=== PATIENT | male | born 1985 | race Caucasian/White ===

== ENCOUNTER 2021-06-19 13:05 | Inpatient (IN) ==
[2021-06-19 13:49] LABS: Appearance Urine Clear (Clear); Bilirubin Urine Negative (Negative); Blood Urine Negative (Negative); Color Urine Dark Yellow; Glucose Urine UA Negative (Negative); Ketones Urine Trace (Negative); Leukocyte Esterase Urine Negative (Negative); Nitrite Urine Negative (Negative); Protein Urine Negative (Negative); Specific Gravity Urine 1.023 (1.000-1.030); Urobilinogen Urine Negative (Negative)
[2021-06-19] MEDS ORDERED: LORazepam 1 MG TAB SL STA (14:03)
--- NOTE | 2021-06-19 14:09 | Emergency Department Note ---
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 Patient states he is doing well in all classes except for one where the professor keeps putting material on in exam that they have the lecture on both the day before. He is also stressed about a project that he states has not been explained for the same class. He is upset because a lot of students in the class are cheating to get through these unreasonable assignments as he states they are. He is stressed out about the work in the project. He states he has been having decreased sleep feelings of hopelessness, feelings of depression and feeling overwhelmed. Patient states he called Prior to arrival. Patient states on the drive over here he was having increased impulses to hurt himself by driving off of the road to kill himself. Patient states that he has a history of depression and anxiety and was hospitalized for mental health at the age of 19. He states he is not on any medications for mental health at the time. Past Med/Surg History Medical History Anxiety Depression No pertinent family history Spinal stenosis Surgical History No pertinent past surgical history Social History Smoking Status: Never smoker Feels Safe at Home: Yes Review of Systems A total of 10 systems reviewed and were otherwise negative Physical Exam Vital Signs Vital Signs - 24 hr 06/19/21 13:13 Temperature 36.4 C L Temperature Source Temporal Artery Scan Pulse Rate 113 H Respiratory Rate 20 Respiratory Effort / Characteristics Non-Labored Spontaneous Respiratory Depth Normal Respiratory Pattern Regular Blood Pressure 135/94 Blood Pressure Mean 107 Blood Pressure Position Sitting Pulse Oximetry 97 Oxygen Delivery Method Room Air Sepsis Recent Fever Within 48 Hours No Sepsis New/Unexplained Change in Mental Status No Sepsis Action Taken by Nursing No Action Required Physical Exam HENT: Exam performed. - Head: Normocephalic and atraumatic. - Right Ear: External ear normal. No mastoid tenderness. - Left Ear: External ear normal. No mastoid tenderness. - Mouth/Throat: The oropharynx is clear and moist. No trismus in the jaw. No dental abscesses or uvula swelling. No oropharyngeal exudate or tonsillar abscesses. EYES: Conjunctivae and EOM are normal. Pupils are equal, round, and reactive to light. Right eye exhibits no discharge. Left eye exhibits no discharge. No scleral icterus. NECK: Normal range of motion. Neck supple. No JVD present. No spinous process tenderness present. No carotid bruit present. No rigidity. No tracheal deviation and normal range of motion present. No Brudzinski's sign and no Kernig's sign noted. CV: Normal rate, regular rhythm, normal heart sounds and intact distal pulses. There is no peripheral edema. Palpable radial pulses bue. PULM/CHEST: Effort normal and breath sounds normal. No respiratory distress. No stridor. He has no wheezes. He has no rales. - Chest Wall: He exhibits no tenderness. ABD: The abdomen is soft. Bowel sounds are normal. He has no distension. No mass is present. There is no tenderness. There is no rebound, no guarding, no Godwin's sign and no tenderness at McBurney's point. Rovsig negative. MUSC/SKEL: Normal range of motion. There is no peripheral edema, tenderness or deformity. LYMPH: No cervical adenopathy. NEURO: He is alert and oriented to person, place, and time. He has normal strength. No cranial nerve deficit or sensory deficit. Coordination and gait normal. GCS eye subscore is 4. GCS verbal subscore is 5. GCS motor subscore is 6. Cerebellar tests wnl. SKIN: Skin is warm and dry. He is not diaphoretic. PSYCH: Pressured speech, patient is tearful, patient is having suicidal ideation. Course Course 1335: The patient was evaluated in room A5. A complete history and physical exam was performed 1440: Patient medically cleared. Awaiting psychiatric evaluation placement. Patient placed in observation at this time. 1848: Patient still awaiting placement. There are no beds available [facility]. however they are planning discharge tomorrow and are anticipating the patient should be able to get a bed there tomorrow. Patient be held in the emergency department overnight until bed is secured in [facility] tomorrow or other nearby local psychiatric facility. Patient doing well feeling better after Ativan. Case signed out to Dr. Lundberg. Administered Medications Discontinued Medications Lorazepam (Lorazepam 1 Mg Tab) 1 mg SL NOW STA Stop: 06/19/21 14:04 Last Admin: 06/19/21 14:25 Dose: 1 mg Documented by: [id number] Medical Decision Making Laboratory Data Result diagrams: 06/19/21 14:17 06/19/21 14:17 Lab Results 06/19/21 06/19/21 06/19/21 Range/Units 14:17 14:17 14:17 WBC 10.20 (4.8-10.8) K/uL RBC 5.04 (4.7-6.1) M/uL Hgb 15.0 (14.0-18.0) g/dL Hct 43.6 (42-52) % MCV 86.5 (80-100) fL MCH 29.8 (25-34) pg MCHC 34.4 (32-36) g/dL RDW Std Deviation 44.5 (36.4-46.3) fL RDW Coeff of Mark Anthony 14.2 (11.5-14.5) % Plt Count 200 (130-400) K/uL MPV 11.9 H (7.4-10.4) fL Immature Gran % (Auto) 0.2 % Neut % (Auto) 66.7 % Lymph % (Auto) 25.0 % [place] % (Auto) 6.4 % Eos % (Auto) 1.4 % Baso % (Auto) 0.3 % Neut # (Auto) 6.81 H (1.4-6.5) K/uL Lymph # (Auto) 2.55 (1.2-3.4) K/uL [place] # (Auto) 0.65 H (0.11-0.59) K/uL Eos # (Auto) 0.14 (0-0.5) K/uL Baso # (Auto) 0.03 (0-0.2) K/uL Immature Gran # (Auto) 0.02 (0.00-0.02) K/uL Sodium 136 (136-145) mmol/L Potassium 3.9 (3.5-5.1) mmol/L Chloride 106 (98-107) mmol/L Carbon Dioxide 24 (21-32) mmol/L Anion Gap 6 (3-11) BUN 9 (6-23) mg/dl Creatinine 0.83 (0.6-1.4) mg/dl Est Cr Clr Drug Dosing Not Reportable Est GFR ( Amer) 134.0 ml/min Est GFR (Non-Af Amer) 115.6 ml/min BUN/Creatinine Ratio 10.8 (10-20) Glucose 101 H (70-99(Fasting)) mg/dl Calcium 8.9 (8.5-10.1) mg/dl Total Bilirubin 0.8 (0.2-1.0) mg/dl AST 14 (13-39) U/L ALT 20 (7-52) U/L Alkaline Phosphatase 79 (34-104) U/L Total Protein 6.3 (6.0-8.3) gm/dl Albumin 3.9 (3.4-5.0) gm/dl Globulin 2.4 L (2.5-4.0) gm/dl Albumin/Globulin Ratio 1.6 (0.9-2) TSH 1.090 (0.300-4.500) uIu/ml Urine Color Urine Appearance (Clear) Urine pH (4.5-7.5) Ur Specific [place] (1.000-1.030) Urine Protein (Negative) Urine Glucose (UA) (Negative) Urine Ketones (Negative) Urine Blood (Negative) Urine Nitrite (Negative) Urine Bilirubin (Negative) Urine Urobilinogen (Negative) Ur Leukocyte Esterase (Negative) Salicylates (3.0-30) mg/dl Urine Opiates Screen (Neg) Ur Methadone, Qual (Neg) Acetaminophen (10-30) ug/ml Urine Barbiturates (Neg) Ur Phencyclidine (PCP) (Neg) U Amphetamin/Meth Scrn (Neg) MDMA (Ecstasy) Screen (Neg) U Benzodiazepines Scrn (Neg) Ur Cocaine Metabolite (Neg) U Marijuana (THC) Screen (Neg) Ethyl Alcohol mg/dL (<10.0) mg/dl 06/19/21 06/19/21 06/19/21 Range/Units 14:17 14:17 Unknown WBC (4.8-10.8) K/uL RBC (4.7-6.1) M/uL Hgb (14.0-18.0) g/dL Hct (42-52) % MCV (80-100) fL MCH (25-34) pg MCHC (32-36) g/dL RDW Std Deviation (36.4-46.3) fL RDW Coeff of Mark Anthony (11.5-14.5) % Plt Count (130-400) K/uL MPV (7.4-10.4) fL Immature Gran % (Auto) % Neut % (Auto) % Lymph % (Auto) % [place] % (Auto) % Eos % (Auto) % Baso % (Auto) % Neut # (Auto) (1.4-6.5) K/uL Lymph # (Auto) (1.2-3.4) K/uL [place] # (Auto) (0.11-0.59) K/uL Eos # (Auto) (0-0.5) K/uL Baso # (Auto) (0-0.2) K/uL Immature Gran # (Auto) (0.00-0.02) K/uL Sodium (136-145) mmol/L Potassium (3.5-5.1) mmol/L Chloride (98-107) mmol/L Carbon Dioxide (21-32) mmol/L Anion Gap (3-11) BUN (6-23) mg/dl Creatinine (0.6-1.4) mg/dl Est Cr Clr Drug Dosing Est GFR ( Amer) ml/min Est GFR (Non-Af Amer) ml/min BUN/Creatinine Ratio (10-20) Glucose (70-99(Fasting)) mg/dl Calcium (8.5-10.1) mg/dl Total Bilirubin (0.2-1.0) mg/dl AST (13-39) U/L ALT (7-52) U/L Alkaline Phosphatase (34-104) U/L Total Protein (6.0-8.3) gm/dl Albumin (3.4-5.0) gm/dl Globulin (2.5-4.0) gm/dl Albumin/Globulin Ratio (0.9-2) TSH (0.300-4.500) uIu/ml Urine Color Dark Yellow Urine Appearance Clear (Clear) Urine pH 6.0 (4.5-7.5) Ur Specific [place] 1.023 (1.000-1.030) Urine Protein Negative (Negative) Urine Glucose (UA) Negative (Negative) Urine Ketones Trace H (Negative) Urine Blood Negative (Negative) Urine Nitrite Negative (Negative) Urine Bilirubin Negative (Negative) Urine Urobilinogen Negative (Negative) Ur Leukocyte Esterase Negative (Negative) Salicylates < 3.0 L (3.0-30) mg/dl Urine Opiates Screen (Neg) Ur Methadone, Qual (Neg) Acetaminophen < 3 L (10-30) ug/ml Urine Barbiturates (Neg) Ur Phencyclidine (PCP) (Neg) U Amphetamin/Meth Scrn (Neg) MDMA (Ecstasy) Screen (Neg) U Benzodiazepines Scrn (Neg) Ur Cocaine Metabolite (Neg) U Marijuana (THC) Screen (Neg) Ethyl Alcohol mg/dL < 10.0 (<10.0) mg/dl 06/19/21 Range/Units Unknown WBC (4.8-10.8) K/uL RBC (4.7-6.1) M/uL Hgb (14.0-18.0) g/dL Hct (42-52) % MCV (80-100) fL MCH (25-34) pg MCHC (32-36) g/dL RDW Std Deviation (36.4-46.3) fL RDW Coeff of Mark Anthony (11.5-14.5) % Plt Count (130-400) K/uL MPV (7.4-10.4) fL Immature Gran % (Auto) % Neut % (Auto) % Lymph % (Auto) % [place] % (Auto) % Eos % (Auto) % Baso % (Auto) % Neut # (Auto) (1.4-6.5) K/uL Lymph # (Auto) (1.2-3.4) K/uL [place] # (Auto) (0.11-0.59) K/uL Eos # (Auto) (0-0.5) K/uL Baso # (Auto) (0-0.2) K/uL Immature Gran # (Auto) (0.00-0.02) K/uL Sodium (136-145) mmol/L Potassium (3.5-5.1) mmol/L Chloride (98-107) mmol/L Carbon Dioxide (21-32) mmol/L Anion Gap (3-11) BUN (6-23) mg/dl Creatinine (0.6-1.4) mg/dl Est Cr Clr Drug Dosing Est GFR ( Amer) ml/min Est GFR (Non-Af Amer) ml/min BUN/Creatinine Ratio (10-20) Glucose (70-99(Fasting)) mg/dl Calcium (8.5-10.1) mg/dl Total Bilirubin (0.2-1.0) mg/dl AST (13-39) U/L ALT (7-52) U/L Alkaline Phosphatase (34-104) U/L Total Protein (6.0-8.3) gm/dl Albumin (3.4-5.0) gm/dl Globulin (2.5-4.0) gm/dl Albumin/Globulin Ratio (0.9-2) TSH (0.300-4.500) uIu/ml Urine Color Urine Appearance (Clear) Urine pH (4.5-7.5) Ur Specific [place] (1.000-1.030) Urine Protein (Negative) Urine Glucose (UA) (Negative) Urine Ketones (Negative) Urine Blood (Negative) Urine Nitrite (Negative) Urine Bilirubin (Negative) Urine Urobilinogen (Negative) Ur Leukocyte Esterase (Negative) Salicylates (3.0-30) mg/dl Urine Opiates Screen Neg (Neg) Ur Methadone, Qual Neg (Neg) Acetaminophen (10-30) ug/ml Urine Barbiturates Neg (Neg) Ur Phencyclidine (PCP) Neg (Neg) U Amphetamin/Meth Scrn Pos H (Neg) MDMA (Ecstasy) Screen Neg (Neg) U Benzodiazepines Scrn Neg (Neg) Ur Cocaine Metabolite Neg (Neg) U Marijuana (THC) Screen Neg (Neg) Ethyl Alcohol mg/dL (<10.0) mg/dl MDM Narrative Observation note Indication: Psych eval/placement Patient, with depression, anxiety was first seen at 1335 hrs and the observation time began at 1440 hrs and was necessary in order to have psych evaluation completed . Impression & Plan Depression with suicidal ideation, Anxiety Discharge Plan Visit Data Chief Complaint: Mental Health Evaluation Stated Complaint: MHE ED Provider: Nico Mcclure Discharge Problem: Depression with suicidal ideation, Anxiety Patient Disposition: Still a Patient Forms Stand Alone Forms: [facility], Suicide Prevention Resources Referrals Referrals: PCP,NO [Physician] -
[2021-06-19 14:31] LABS: Basophils # (auto) 0.03 K/uL (0-0.2); Basophils % (auto) 0.3 %; Eosinophils # (auto) 0.14 K/uL (0-0.5); Eosinophils % (auto) 1.4 %; Hematocrit (blood only) 43.6 % (42-52); Immature Granulocytes # (auto) 0.02 K/uL (0.00-0.02); Immature Granulocytes % (auto) 0.2 %; Lymphocytes # (auto) 2.55 K/uL (1.2-3.4); Mean Corpuscular Hemoglobin 29.8 pg (25-34); Mean Corpuscular Hgb Conc 34.4 g/dL (32-36); Mean Corpuscular Volume 86.5 fL (80-100); Mean Platelet Volume 11.9 fL (7.4-10.4); Monocytes # (auto) 0.65 K/uL (0.11-0.59); Monocytes % (auto) 6.4 %; Neutrophils # (auto) 6.81 K/uL (1.4-6.5); Neutrophils % (auto) 66.7 %; Platelet Count 200 K/uL (130-400); RDW Coefficient of Variation 14.2 % (11.5-14.5); RDW Standard Deviation 44.5 fL (36.4-46.3); Red Blood Count 5.04 M/uL (4.7-6.1)
[2021-06-19 14:38] LABS: Amphetamines+Metham, Urine Pos (Neg); Barbiturates, Urine Neg (Neg); Benzodiazepine, Urine Neg (Neg); Cocaine, Urine Neg (Neg); MDMA (Ecstacy), Urine Neg (Neg); Methadone, Urine Neg (Neg); Opiate, Urine Neg (Neg); Phencyclidine, Urine Neg (Neg)
[2021-06-19 14:58] LABS: Acetaminophen < 3 ug/ml (10-30); Salicylate < 3.0 mg/dl (3.0-30)
[2021-06-19 14:59] LABS: Alanine Aminotransferase 20 U/L (7-52); Albumin Globulin Ratio 1.6 (0.9-2); Albumin Level 3.9 gm/dl (3.4-5.0); Alkaline Phosphatase 79 U/L (34-104); Anion Gap 6 (3-11); Aspartate Aminotransferase 14 U/L (13-39); BUN Creatinine Ratio 10.8 (10-20); Bilirubin,Total 0.8 mg/dl (0.2-1.0); Blood Urea Nitrogen 9 mg/dl (6-23); Calcium 8.9 mg/dl (8.5-10.1); Carbon Dioxide 24 mmol/L (21-32); Chloride 106 mmol/L (98-107); Est GFR (Non-African American) 115.6 ml/min; Globulin 2.4 gm/dl (2.5-4.0); Glucose 101 mg/dl (70-99(Fasting)); Potassium 3.9 mmol/L (3.5-5.1); Sodium 136 mmol/L (136-145); Total Protein 6.3 gm/dl (6.0-8.3)
--- NOTE | 2021-06-20 02:48 | Emergency Department Note ---
ED Visit Note Patient signed out to me at change of shift from Dr. Mcclure. Patient with anxiety, suicidal ideation with a plan. Patient is voluntary at this time, hoping for placement to or local facility in the morning. Patient signed out to Dr. Ashley. .
--- NOTE | 2021-06-20 04:18 | Emergency Department Note ---
ED Visit Note This case was signed out to me at change of shift awaiting bed placement. The patient has rested overnight. The bed search was suspended overnight. He is willing to admit himself voluntarily for inpatient psychiatric care. The patient will be evaluated for admission to [facility]. in the a.m. The case will be signed out to Dr. Clements at change of shift. .
--- NOTE | 2021-06-20 07:49 | Emergency Department Note ---
ED Visit Note ED Physician Sign Out Note: 35-year-old male with an extensive history of depression anxiety with previous hospitalizations in a suicide attempt about 15 years ago. Patient states that he has had increased anxiety over the last few months due to complexity of schoolwork acute onset worsening anxiety leslie over the last 3 to 4 days due to an acute issue with school. Admits that he essentially did not eat or drink or sleep for the entirety of Sunday after worrying about classwork issue and then throughout the last 24 to 48 hours severe depression with multiple recurrent thoughts to kill himself. He states that if he had an easy way to do so he would have already killed himself. He admits that he was thinking of crashing his car thus was [place] [address], at high speeds. He was signed out to me after being medically cleared this morning. He had no major issues overnight. This morning initially sleeping and no issues. He was seen by psych team with plan for voluntary admission though apparently he wanted to try going home as he felt a good safety plan. On evaluating the patient he is continually talking about ways that he might kill himself if the opportunity presented itself and he does not feel he will get any better by going home. He is somewhat against hospitalization though as he is worried he will not get any schoolwork done and then will just be further behind his work and that will further stressing out. Myself and case management discussed this with him further and given his statements and concerns is willing to rediscuss hospitalization with psychiatry. 3 sat down to evaluate disc with patient again and he will voluntarily admit himself at this time. Rhys Clements MD
[2021-06-20] MEDS ORDERED: hydrOXYzine HCl 25 MG TAB PO PRN ×4 (09:54→14:15)
[2021-06-20] MEDS ORDERED: BISMUTH SUBSALICYLATE LIQD 236 ML PO PRN ×2 (09:54→14:15)
[2021-06-20] MEDS ORDERED: SODIUM CHLORIDE 0.65% NA SOLN 45 ML (OCEAN) PRN ×2 (09:54→14:15)
[2021-06-20] MEDS ORDERED: ACETAMINOPHEN 325 MG TAB PO PRN ×2 (09:54→14:15)
[2021-06-20] MEDS ORDERED: ALUMINUM/MAGNESIUM SUSP 30 ML UDC PO PRN ×2 (09:54→14:15)
[2021-06-20] MEDS ORDERED: MAGNESIUM HYDROXIDE SUSP 30 ML UDC PO PRN ×2 (09:54→14:15)
--- NOTE | 2021-06-20 11:26 | Communication Note ---
Date of Service: June 20, 2021 patient was referred for inpatient psychiatric hospitalization. Orders entered proactively but when talked with liaison he didn't feel like he wanted to sign in anymore as the acute stressor had passed and the SI in the car was fleeting. He is scheduled for outpatient follow up in June and has availability for [facility]. Orders discontinued. She did discuss my concern that he should not be splitting Mydayis based on the type of formulation as odd absorption could contribute to some of his mixed symptoms. I do not see evidence of RX in surescripts or PDMP. He was directed to hold until he speaks with prescriber. He indicated he has split before without issue but nurse reinforced that it was not recommended. typically our service does not recommend starting antidepressants from the ED. If attending would want to rx a prn for anxiety in case panic recurs would suggest short supply of Vistaril 25 mg 1-2 tabs q 6hr. Given that he is currently denying SI and there is a viable safety plan and no evidence of manic impulsivity or psychosis there would likely be insufficient criteria for a 302 warrant.
[2021-06-20] MEDS ORDERED: LORazepam 1 MG TAB PO PRN (14:58)
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
[2021-06-20] MEDS ORDERED: haloperidoL 5 MG TAB PO STA ×2 (18:16→20:28)
[2021-06-20] MEDS ORDERED: LORazepam 1 MG TAB PO STA ×2 (18:17→20:29)
[2021-06-20] MEDS ORDERED: haloperidoL 5 MG TAB PO ONE (18:21)
[2021-06-20] MEDS ORDERED: OLANZapine 10 MG TAB PO STA (19:43)
--- NOTE | 2021-06-20 23:10 | Discharge Summary ---
Date of Service June 20, 2021 History of Present Illness Isaak presented to the ED yesterday afternoon with a mix of anxiety and depressive symptoms. He relates getting overwhelmed by additional requirements for one of his courses and not being able to navigate how to coordinate communication with the professor or TA. He spends alot of his time on this 1 class and it is 1 of 4 he needs to graduate. 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 I reminded him that he signed in voluntarily and his stay will not be reported to the state for background checks, etc. He has submitted a 72 hour notice upon arrival to the unit, mainly as so perseverative on being able to have his computer and work on work. There was extensive review of unit policies prior to signing in and reviewed the statements in made in the past 24 hrs. He described spending 15 hours at a time on the computer and not breaking to eat or drink and since he presents as changing topics and fast speech there was concerned he may be manic. He denies leslie and states that he has been very depressed in the past and "I didn't kill myself then so why would I do it now." He stated that his comments about wrecking his car where more like "when you walk near the edge of john and you have a thought you could jump and you don't want to do it but maybe also worry you're a little impulsive." There were multiples statements in the ED about /potential self-harm as per CM said if there was a suicide button in the room he could have pushed it "10 times by now". He denied this indicated suicidal ideation but rather that he could have if serious. Reviewed how this statement and that about not wrecking his car because none of the roads here had a high enough speed was also concerning for someone insisting on leaving the hospital in the middle of a snow squall. He then proceeded to describe thoughts he had in the past about releasing inert or farias gases into a bag. Again, attempted to point out how others can misconstrue his intent. He needed interrupted and redirected to topic several times due to perseveration. He was sweating profusely (apparent hx of hyperhidrosis) and ultimately accepted a prn Ativan and was resting in his room soon after. He did make comments about eloping or asking the consequence for breaking something as he was so mad. The patient agreed that I could contact his mother, especially since a decision needs to be made quickly re: his treatment plan. His mother confirmed that they live together in a duplex and she came to live with him after Isaak's father a few years ago which coincided with Isaak seeking an inpatient hospitalization in [place], mainly residential for feeling severe anxiety and depression, denied a suicide attempt at that time but he was hospitalized at age 19 following an OD. At the residential program (2 weeks) he was allowed to work on coursework/computer. She states that as a child he always had difficulty relating to peers and a narrow range of interest. 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 Both mentioned [employer] [facility] [employer]. She denied a formal diagnosis of autism spectrum disorder but states he has worked with a neuropsychologist in [place] for testing and they stay in touch. She does not believe that he misuses his prescription medication (Mydayis) and states that "If I thought he was manic I'd surely tell you. He's not manic." She stated this behavior is typical of severe stress and that he's focussed on this 1 class and graduation and July. Physical Exam Psychiatric See admission H&P and DOD assessment. Vital Signs (Past 24 Hours) Last Vital Signs Temp 36.7 C 06/20/21 21:05 Pulse 78 06/20/21 21:05 Resp 16 06/20/21 21:05 BP 122/80 06/20/21 21:05 Pulse Ox 98 06/20/21 21:05 Principal Diagnosis autism spectrum disorder Psychiatric Data The patient had submitted a 72 hour notice on arrival to the unit. H&P was completed with additional collateral from mother. Soon after agreeing to initial treatment plan he made comments about possible elopement and inquired about what would happen if he destroyed property on the unit. After 1 mg of Ativan, he was resting but soon after he was standing by the doors, making gestures at the windows in the door and had moved a couch to sit on it by the door, blocking egress. Isaak was redirected to his room where I met with the patient for a second time and gave him the option for discharge vs my advice to remain hospitalized until am so we could coordinate a meeting with student care and advocacy and confirm aftercare. He reported having an appointment with [facility] at 2 pm on 06/21/21 as well as med management intake at [facility] in June. He agreed to remain hospitalized but continued to perseverate on inability to use his phone/computer to complete school work. Soon after he was offered and accepted Haldol 5 and Ativan 2 mg for agitation/anxiety. 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 Receive staff call later in evening that he remained restless, yelling; mom and patient were both requesting "tranquilizer". He was given Zyprexa 10 mg PO with hopes he would rest and address his discharge plan in the am, but within an hour he was banging his head, yelling in a way that was upsetting to peers and would not stay in the KENDRA area (so he would be less disruptive to the milieu). I contacted his mother to explain that we needed to discharge patient or proceed with involuntary commitment. She could not pick him up due to an ankle surgery (unable to drive). She did not support involuntary commitment and behaviors seemed consistent with acting out stress related to autism spectrum disorder rather than acute leslie or psychosis (though likely some co-morbid mood component). Reviewed that I did not feel it was appropriate for him to drive his car home given prn medications and emotional state and she was comfortable with him coming home with an Uber. The inpatient environment was exacerbating his anxiety and ongoing stay on an involuntary commitment seemed counter- therapeutic. Security had been called to unit for a visual presence and when I arrived to discharge patient he was sitting on his bed with nursing staff. He stated his main goal was having us provide ongoing case management to help him navigate [facility] accommodations. I reviewed if he signed a release for student care and advocacy we could notify them of his dates of admission and update on his condition but as the student he needed to follow through and that we do not provide ongoing counseling or case management at discharge. He voiced understanding of this. He continued to state he just wanted to drive himself home and it was explained this was driving under the influence since he had received Ativan, Haldol, Zyprexa within past few hours. He ordered an Uber and security escorted him off of the unit. We were notified by security that he cancelled his Uber and went directly to the ED for assessment. His mother was aware. I spoke to ED CM as he was being roomed. Day of Discharge Assessment His mental status exam was essentially unchanged from admission, there was no evidence he was responding to internal stimuli. His thoughts were coherent but perseverative. He denied SI/HI. His speech was fast at times but less pressured. Transition of Care Transition Of Care Record: was reviewed with the patient (this was not reviewed with the patient as he was uncooperative) Advance Directives Advance Directives Information Provided: Yes Advance Directives: No Mental Health Advance Directive: No Advance Directives on File: No Living Will: No Power of Treatment Counselor: No Advance Directives Reason:: Declines as Mental Health Visit. Risk Factors Assessment Male: Yes : Yes Do You Have Access To A Gun?: No Mental Health Diagnoses: Yes Substance Use Disorders: No Previous Attempt: Yes Previous Psychiatric Hospitalization: Yes Protective Factors Assessment Employed: No Supportive Family: Yes Tobacco Cessation at Discharge Tobacco Cessation Medication Prescribed at Discharge: Not Applicable/Non-Smoker Total Time Total Time Spent: Greater Than 30 Minutes (no bill as patient was admitted same day) Total Time Includes: Examination of the patient, Discharge Planning and Medication Reconciliation Discharge Data Lab Results 06/19/21 06/19/21 06/19/21 14:17 14:17 14:17 WBC 10.20 RBC 5.04 Hgb 15.0 Hct 43.6 MCV 86.5 MCH 29.8 MCHC 34.4 RDW Std Deviation 44.5 RDW Coeff of Mark Anthony 14.2 Plt Count 200 MPV 11.9 H Immature Gran % (Auto) 0.2 Neut % (Auto) 66.7 Lymph % (Auto) 25.0 Norton % (Auto) 6.4 Eos % (Auto) 1.4 Baso % (Auto) 0.3 Neut # (Auto) 6.81 H Lymph # (Auto) 2.55 Norton # (Auto) 0.65 H Eos # (Auto) 0.14 Baso # (Auto) 0.03 Immature Gran # (Auto) 0.02 Sodium 136 Potassium 3.9 Chloride 106 Carbon Dioxide 24 Anion Gap 6 BUN 9 Creatinine 0.83 Est Cr Clr Drug Dosing Not Reportable Est GFR ( Amer) 134.0 Est GFR (Non-Af Amer) 115.6 BUN/Creatinine Ratio 10.8 Glucose 101 H Calcium 8.9 Total Bilirubin 0.8 AST 14 ALT 20 Alkaline Phosphatase 79 Total Protein 6.3 Albumin 3.9 Globulin 2.4 L Albumin/Globulin Ratio 1.6 TSH 1.090 Urine Color Urine Appearance Urine pH Ur Specific [place] Urine Protein Urine Glucose (UA) Urine Ketones Urine Blood Urine Nitrite Urine Bilirubin Urine Urobilinogen Ur Leukocyte Esterase Salicylates Urine Opiates Screen Ur Methadone, Qual Acetaminophen Urine Barbiturates Ur Phencyclidine (PCP) U Amphetamin/Meth Scrn MDMA (Ecstasy) Screen U Benzodiazepines Scrn Ur Cocaine Metabolite U Marijuana (THC) Screen Ethyl Alcohol mg/dL SARS-CoV-2, RNA, NAAT 06/19/21 06/19/21 06/19/21 14:17 14:17 14:40 WBC RBC Hgb Hct MCV MCH MCHC RDW Std Deviation RDW Coeff of Mark Anthony Plt Count MPV Immature Gran % (Auto) Neut % (Auto) Lymph % (Auto) Norton % (Auto) Eos % (Auto) Baso % (Auto) Neut # (Auto) Lymph # (Auto) Norton # (Auto) Eos # (Auto) Baso # (Auto) Immature Gran # (Auto) Sodium Potassium Chloride Carbon Dioxide Anion Gap BUN Creatinine Est Cr Clr Drug Dosing Est GFR ( Amer) Est GFR (Non-Af Amer) BUN/Creatinine Ratio Glucose Calcium Total Bilirubin AST ALT Alkaline Phosphatase Total Protein Albumin Globulin Albumin/Globulin Ratio TSH Urine Color Urine Appearance Urine pH Ur Specific [place] Urine Protein Urine Glucose (UA) Urine Ketones Urine Blood Urine Nitrite Urine Bilirubin Urine Urobilinogen Ur Leukocyte Esterase Salicylates < 3.0 L Urine Opiates Screen Ur Methadone, Qual Acetaminophen < 3 L Urine Barbiturates Ur Phencyclidine (PCP) U Amphetamin/Meth Scrn MDMA (Ecstasy) Screen U Benzodiazepines Scrn Ur Cocaine Metabolite U Marijuana (THC) Screen Ethyl Alcohol mg/dL < 10.0 SARS-CoV-2, RNA, NAAT NEGATIVE 06/19/21 06/19/21 Unknown Unknown WBC RBC Hgb Hct MCV MCH MCHC RDW Std Deviation RDW Coeff of Mark Anthony Plt Count MPV Immature Gran % (Auto) Neut % (Auto) Lymph % (Auto) Norton % (Auto) Eos % (Auto) Baso % (Auto) Neut # (Auto) Lymph # (Auto) Norton # (Auto) Eos # (Auto) Baso # (Auto) Immature Gran # (Auto) Sodium Potassium Chloride Carbon Dioxide Anion Gap BUN Creatinine Est Cr Clr Drug Dosing Est GFR ( Amer) Est GFR (Non-Af Amer) BUN/Creatinine Ratio Glucose Calcium Total Bilirubin AST ALT Alkaline Phosphatase Total Protein Albumin Globulin Albumin/Globulin Ratio TSH Urine Color Dark Yellow Urine Appearance Clear Urine pH 6.0 Ur Specific [place] 1.023 Urine Protein Negative Urine Glucose (UA) Negative Urine Ketones Trace H Urine Blood Negative Urine Nitrite Negative Urine Bilirubin Negative Urine Urobilinogen Negative Ur Leukocyte Esterase Negative Salicylates Urine Opiates Screen Neg Ur Methadone, Qual Neg Acetaminophen Urine Barbiturates Neg Ur Phencyclidine (PCP) Neg U Amphetamin/Meth Scrn Pos H MDMA (Ecstasy) Screen Neg U Benzodiazepines Scrn Neg Ur Cocaine Metabolite Neg U Marijuana (THC) Screen Neg Ethyl Alcohol mg/dL SARS-CoV-2, RNA, NAAT Hospital Course (1) Depression with suicidal ideation: (2) Anxiety: (3) Autism spectrum disorder: admit plan: The patient was admitted to the [facility] ([facility] mental health unit) on q15 min checks (behavioral with suicide precautions) for safety. The patient will participate in group, recreational, and milieu therapies and will be offered additional individual and family sessions as clinically appropriate. Ativan 1 mg q4 hr prn. Communication with student care and advocacy in am. family meeting with mom. He is scheduled to meet with [facility] tomorrow afternoon re: therapy and is scheduled for [facility] in June. Mental Health & Subst Abuse Tx Therapist Name of Therapist: LEO Date of Therapist Appointment: 06/21/21 Post Discharge Appointments Primary Care Physician Name Of Family Doctor: [facility] Smoking Cessation Counseling Tobacco Cessation Medication Prescribed at Discharge: Not Applicable/Non-Smoker Discharge Plan Discharge Items Patient Disposition: Home - Self-Care Reason For Visit: DEPRESSIVE DISORDER UNSPECIFIED Discharge Diagnosis: autism spectrum disorder Activity: Resume your previous activity Non-emergency contact: Primary Care Provider, Psychiatrist and Therapist Call non-emergency contact if: your symptoms worsen Follow-up/Referrals: [facility] [Primary Care Provider] - Diet: Regular Addtl Attending Provider Instructions: SPECIAL CARE INSTRUCTIONS: 1. Follow through with your scheduled aftercare appointments. If unable to keep an appointment, please call to reschedule. 2. Take your medication only as prescribed. Medication should not be changed or stopped without the approval of your doctor. In the event of worsening symptoms or concerns about side effects, contact your doctor immediately. 3. Utilize new healthy coping skills, anger management skills, and stress management skills learned during your hospitalization. Journal feelings and process them with a support person. Identify stressors or situations that m ay result in relapse, deterioration or inappropriate behaviors and develop a plan to deal with those issues. 4. If your coping skills are ineffective and you are in crisis, contact your tpatie providers for direction. If unable to reach your providers, please call the [facility] CRISIS LINE AT , go to the [facility] walk-in center at [address] [place] [address] [facility], or go to the closest Emergency Room. 5. Avoid alcohol and un-prescribed drugs. 6. You have been provided with the Mental Health Advance Directives Pamphlet for your review. 7. Your condition is stable for discharge to outpatient level of care, but recovery is an ongoing process. Ifthoughts to harm yourself or others return, follow the safety plan developed during your stay. Planning for a safe return home includes securing weapons. Our treatment team recommends weaponsbe removed from the home until your outpatient provider reassesses your progress. In rare cases where the items themselvescannot be removed, guns and ammunitionshould be secured separatelyand keys stored by a reliable personoutside of the home. If you were admitted on an involuntary commitment, the police or other legal authorities may be involved in this process. AFTERCARE APPOINTMENTS: * Please call your insurance company prior to your scheduled appointment to confirm your aftercare providers are covered. Take your insurance information to your appointments. WHO TO CALL AND WHEN: Medical Emergencies: For questions or emergencies related to your hospital stay, please contact the Inpatient Behavioral Health Unit at [phone]. A substance abuse clinician is on-call 16/10 for the Behavioral Health Unit for emergencies At any time you feel your situation is an emergency, you may also call 911 immediately. Pending Studies at Discharge: No Stand-Alone Forms: My [facility], Smoking Cessation Medications and DC Order Prescriptions: Discontinued Mydayis 25 mg Capsule, Er Triphasic 24 Hr 25 mg PO DAILY RF: 0 Discharge Orders: Discharge Order (Routine); Ordered 06/20/21 Ordered By: Ruthy Pepper Admission Data Admit Date/Time: 06/20/21 09:54 Attending Provider: Ruthy Pepper Admit Provider: Ruthy Pepper Primary Care Provider: [facility] Other Interventions: Discharge Summary Assessment (RN) Last Done: 06/20/21 21:05 Coding Level of Care Code None Diagnoses Depression with suicidal ideation F32.A; R45.851 Anxiety F41.9 Autism spectrum disorder F84.0
--- NOTE | 2021-06-21 09:38 | Communication Note ---
Date of Service: June 21, 2021 Divya Jaquez CM from [facility] called for a safety check as she spoke with Isaak while he was in the emergency room and has several [facility] appointments. I reviewed no YOLANDA for [facility] and could only confirm he was not an active patient on [facility]. Mother called as aware that Isaak was in the ED and pending transfer to [facility] and she was concerned about the online reviews. I directed her to speak with the ED and that our unit has no YOLANDA on discharge for communication with family. She indicated she had already communicated with Isaak and the ED and main concern re mila the 1 class. I reviewed that as she was aware, he signed a release on admission to the unit for student care and advocacy so we will share that information but again reinforced that we are not able to provide ongoing case management. She plans to contact Student Care and Advocacy and I reinforced that they are student driven and may also require additional releases. She was thankful for the return call and understands that she needs to direct further questions to current treatment providers.
[2021-06-21 23:41] LABS: Amphetamine Urine, Confirm 4440 ng/mL (<250); Methamphetamine, Ur Confirm NEGATIVE ng/mL (<250)
== END 2021-06-20 21:10 | disposition home or self-care (01) | DRG 884 ==
LOC: ED 13:05 → 3S 06-20 09:54